=== PATIENT | female | born 1985 | race Caucasian/White ===

== ENCOUNTER 2017-12-25 18:16 | Emergency (ER) | payer OTHER ==
[~2017-12-25] VITALS: Ht 160 cm; Wt 79.4 kg
[2017-12-25] MEDS ORDERED: BUPROPION XL150 MG PO (18:44)
[2017-12-25] MEDS ORDERED: DOXYCYCLINE HY100 MG PO (23:02)
[2017-12-25] MEDS ORDERED: NORCO 5-325 TA1 EACH PO (23:02)
== END 2017-12-25 23:20 | disposition home or self-care (01) ==
LOC: ED 18:16
DX: N73.0 Acute parametritis and pelvic cellulitis (principal); Z79.899 Other long term (current) drug therapy
CPT/HCPCS: 36415; 74177; 80053; 81001; 83690; 84703; 85025; 87210; 87491; 87591; 96361; 96374; 96375; 96376; 99284; J0696; J1885; J2270; J2405; J7030; Q9967